=== PATIENT | female | born 1980 | race Caucasian/White ===

== ENCOUNTER → 2016-07-05 | Outpatient (CLI) | payer OTHER ==
[2016-07-05 16:37] LABS: FREE T4 (FREE THYROXINE) 0.98 ng/dL (0.93-1.71)
== END ==
LOC: LAB 15:31
PROVIDERS: ATTEND Family Medicine
DX: E06.3 Autoimmune thyroiditis (principal)
CPT/HCPCS: 36415; 84439; 84443

== ENCOUNTER → 2016-07-10 | Outpatient (CLI) | payer OTHER | LOC: LAB 15:17 | PROVIDERS: ATTEND Obstetrics & Gynecology Gynecology | DX: Z32.00 Encounter for pregnancy test, result unknown (principal) | CPT/HCPCS: 36415; 84144; 84702 ==

== ENCOUNTER → 2016-07-12 | Outpatient (CLI) | payer OTHER ==
[2016-07-12 12:08] LABS: HEMATOCRIT 41.2 % (37.0-47.0); HEMOGLOBIN 14.6 g/dL (12.0-16.0); MEAN CORPUSCULAR HEMOGLOBIN 29.1 PG (27-31); MEAN CORPUSCULAR HGB CONC 35.4 g/dL (33-37); RDW COEFFICIENT OF VARIATION 12.6 % (11.5-14.5); RED BLOOD COUNT 5.01 10^6/uL (4.20-5.40); WHITE BLOOD COUNT 7.84 10^3/uL (4.8-10.8)
[2016-07-12 12:53] LABS: HIV ANTIBODY NEGATIVE (N); HIV-1 P24 ANTIGEN NEGATIVE (N)
[2016-07-13 23:51] LABS: HEP B SURFACE AG Negative (Negative); RUBELLA IGG INDEX 4.4 (())
[2016-07-13 23:52] LABS: HCV AB SCREEN Negative (Negative)
[2016-07-14 14:51] LABS: SYPHILIS ANTIBODY BY TP-PA Negative (Negative)
== END ==
LOC: LAB 11:27
PROVIDERS: ATTEND Obstetrics & Gynecology Gynecology
DX: Z01.83 Encounter for blood typing (principal); Z13.0 Encounter for screening for diseases of the blood and blood-forming organs and certain disorders involving the immune mechanism; Z11.3 Encounter for screening for infections with a predominantly sexual mode of transmission; Z11.59 Encounter for screening for other viral diseases; Z11.8 Encounter for screening for other infectious and parasitic diseases; Z13.29 Encounter for screening for other suspected endocrine disorder
CPT/HCPCS: 84702; 85027; 86703; 86762; 86780; 86803; 86850; 86900; 86901; 87340

== ENCOUNTER → 2016-07-14 | Outpatient (CLI) | payer OTHER | LOC: LAB 08:36 | PROVIDERS: ATTEND Obstetrics & Gynecology Gynecology | DX: Z32.01 Encounter for pregnancy test, result positive (principal) | CPT/HCPCS: 36415; 84702 ==

== ENCOUNTER → 2016-10-24 | Outpatient (CLI) | payer OTHER ==
[2016-10-24 11:03] LABS: FREE T4 (FREE THYROXINE) 1.2 ng/dL (0.93-1.71)
--- NOTE | 2016-10-24 12:09 | DI ---
US OB GTE 14 WEEKS,10/24/2016 8:52 AM: Clinical History: screening for malformations. Previous Exam: None at this facility. Findings: Multiple grayscale and color Doppler sonographic images are obtained through the pelvis, and demonstr ate a single live intrauterine gestation in breech presentation. Amniotic fluid is subjectively fernando l. Detected Doppler heart tones measure 136 beats per minute. There is normal motion of the heart and limbs with normal respiratory motion. The placenta is anterior and grade 0 without visible defects. Estimated gestational age was determined by a composite of biparietal diameter, head circumference an d abdominal circumference and femur length yielding an estimated gestational age by ultrasound of 19 weeks 5 days. Estimated weight is 310 g (31st percentile). Impression: Single live intrauterine gestation with size equal to dates.
== END ==
LOC: US 08:49 → LAB 08:49
PROVIDERS: ATTEND Family Medicine
DX: O99.282 Endocrine, nutritional and metabolic diseases complicating pregnancy, second trimester (principal); E06.3 Autoimmune thyroiditis; Z36 Encounter for antenatal screening of mother; Z3A.19 19 weeks gestation of pregnancy
CPT/HCPCS: 36415; 76805; 84439; 84443

== ENCOUNTER → 2016-12-15 | Outpatient (CLI) | payer OTHER ==
[2016-12-15 11:13] LABS: HEMATOCRIT 35.9 % (37.0-47.0); HEMOGLOBIN 12.3 g/dL (12.0-16.0); MEAN CORPUSCULAR HEMOGLOBIN 29.6 PG (27-31); MEAN CORPUSCULAR HGB CONC 34.3 g/dL (33-37); MEAN CORPUSCULAR VOLUME 86.5 FL (81-99); MEAN PLATELET VOLUME 9.7 FL (7.4-12.2); RED BLOOD COUNT 4.15 10^6/uL (4.20-5.40)
== END ==
LOC: LAB 09:36
PROVIDERS: ATTEND Obstetrics & Gynecology
DX: Z36 Encounter for antenatal screening of mother (principal); Z3A.27 27 weeks gestation of pregnancy
CPT/HCPCS: 36415; 82950; 84443; 85027

== ENCOUNTER → 2016-12-18 | Outpatient (CLI) | payer OTHER ==
--- NOTE | 2016-12-21 14:05 | HOLTER ---
[facility] Interpretive Statements This is a 48 hour Holter study done for "heart flutters." Patient only had 2 diary entries, but several button pushes. The diary reports only one episode of " hard beats, some flutter" with corresponding normal sinus rhythm at 85 BPM with a single ventricular ectopic beat at 9:50 PM day 1. There were another 18 orellana to the tracings and all corresponded to the predominate rhythm of normal sinus at rates from 80 to 130 BPM and there were 12 separate ventricular ectopics within these 18 marked tracings. Total recorded beats were 252,210 with an average rate of 95 BPM, a minimum of 62 BPM, and a maximal rate of 144 BPM occuring at 9:39 PM day 2 (without reported symptoms or kaitlin to the tracing). There were only 4 possible atrial ectopics and 185 ventricular ectopics with zero R on T and all being singlets. There was no significant bradycardia or pauses. The average QTc was 419 ms. IMPRESSION: Normal 48 hour Holter study with singlet VPCs correlating to symptoms as reported. Electronically Signed On 12-22-16 08:08:26 MDT by Dinesh Huston MD [email or web address]
== END ==
LOC: RT 18:36
PROVIDERS: ATTEND Family Medicine
DX: O26.892 Other specified pregnancy related conditions, second trimester (principal); R00.2 Palpitations; Z3A.27 27 weeks gestation of pregnancy
CPT/HCPCS: 93225; 93226; 93227

== ENCOUNTER 2017-03-07 09:48 | Inpatient (IN) ==
[2017-03-07] MEDS ORDERED: Famotidine Inj 20 MG in Normal Saline Flush 10 ML IVP ONE (09:50)
[2017-03-07] MEDS ORDERED: LIDOCAINE W/ SODIUM BICARB 0.5 ML SYR SUBD PRN (09:50)
[2017-03-07] MEDS ORDERED: CITRIC ACID/SODIUM CITRATE 30 ML CUP PO ONE (09:50)
[2017-03-07] MEDS ORDERED: CefOXitin Inj 2 GM in Sodium Chloride 0.9% 100 ML IV ONE (09:50)
[2017-03-07] MEDS ORDERED: NORMAL SALINE 10 ML SYRINGE FLUSH IVP PRN ×2 (09:50→13:45)
[2017-03-07] MEDS ORDERED: Metoclopramide Inj 10 MG/2 ML VIAL IV ONE (09:50)
[2017-03-07] MEDS ORDERED: D5-LR 1,000 ML PRIMARY IV SCH (10:00)
[2017-03-07] MEDS ORDERED: Oxytocin 20 Units + LR 20 UNIT/1,000 ML BAG IV SCH ×2 (10:00→13:52)
[2017-03-07] MEDS ORDERED: LIDOCAINE W/ SODIUM BICARB 0.5 ML SYR SUBCUT ONE (10:19)
[2017-03-07 10:43] LABS: Hematocrit [HCT] 37.5 % (37.0-47.0); Hemoglobin [HGB] 12.8 g/dL (12.0-16.0); MEAN CORPUSCULAR HEMOGLOBIN 28.9 PG (27-31); MEAN CORPUSCULAR HGB CONC 34.1 g/dL (33-37); MEAN CORPUSCULAR VOLUME 84.7 FL (81-99); MEAN PLATELET VOLUME 11.9 FL (7.4-12.2); RED BLOOD COUNT 4.43 10^6/uL (4.20-5.40)
[2017-03-07] MEDS: Lactated Ringers 1,000 ML PRIMARY IV ONE ×2 (12:08→12:43)
[2017-03-07] MEDS ORDERED: OXYTOCIN 10 UNIT/1 ML ONE (12:12)
[2017-03-07] MEDS ORDERED: ePHEDrine Inj 50 MG/ML AMP ONE (12:12)
[2017-03-07] MEDS ORDERED: Lactated Ringers 1,000 ML PRIMARY IV ONE (12:13)
[2017-03-07] MEDS ORDERED: MORPHINE SULFATE/PF 10 MG/10 ML AMPULE ONE (12:36)
[2017-03-07] MEDS ORDERED: Clindamycin 900mg (Premix) 900 MG/50 ML BAG IV SCH (12:45)
[2017-03-07] MEDS ORDERED: Aztreonam Inj 2 GM in Sodium Chloride 0.9% 100 ML IV ONE (12:45)
[2017-03-07] MEDS ORDERED: Lactated Ringers 1,000 ML PRIMARY IV SCH (13:00)
[2017-03-07] MEDS ORDERED: Sodium Chloride 0.9% vial 10 ML ONE (13:03)
[2017-03-07] MEDS ORDERED: PHENYLEPHRINE 10,000 MCG/1 ML VIAL ONE (13:03)
[2017-03-07] MEDS ORDERED: ONDANSETRON 4 MG/2 ML VIAL ONE ×2 (13:15→15:55)
--- NOTE | 2017-03-07 13:38 | OB.OP.NOTE ---
Operative Report Surgeon: Fanny [employer] Inspector: Lj Rodriguez MD Anesthesia Type: Regional Anesthesia Provider: Jacinto Smalls CRNA Surgery Date: 03/07/17 Preoperative Diagnosis: 39 week IUP, Previous , Desires Sterilization Postoperative Diagnosis: Same Procedure: Repeat LTCS with PPTL with Filshie Clips Estimated Blood Loss (mL): 400 Fluids: 1700 ml Complications: None Findings at Surgery: Viable female infant, Apgars 9/10, Weight 6 lbs 2oz, Double Nuchal Cord, Normal Uterus, Tubes and Ovaries Indications for the Procedure: 39 week EGA, previous section, desires sterilization Description of Procedure: See dictated operative report. Plan: Routine post operative care.
[2017-03-07] MEDS ORDERED: ONDANSETRON 4 MG/2 ML VIAL IVP PRN (13:45)
[2017-03-07] MEDS ORDERED: ePHEDrine Inj 50 MG/ML AMP IVP PRN (13:45)
[2017-03-07] MEDS ORDERED: HYDROmorphone 2 MG/1 ML IVP PRN (13:45)
--- NOTE | 2017-03-07 13:47 | CRNA.PROGR ---
Anesthesia Time - - Start date: 03/07/17 End date: 03/07/17 - Procedure/Recovery Time Anesthesia : Time In: 12:50 Anesthesia : Time Out: 13:35 Anesthesia : Total Time: 45 - Total Anesthesia Time Total Anesthesia Time (minutes): 45 - Other Weight: 73.482 kg Height: 5 ft 2 in Body Mass Index (BMI): 29.6 Physical Status: P2 Anesthesia Type: Spinal Block Obstetrics: C/S anesthesia only
--- NOTE | 2017-03-07 13:48 | CRNA.PROCE ---
Central Neuraxis Block Placemt - - Safety Measures: Time Out Taken - - Type of Block: Subarachnoid, Epidural Reason for Block: Surgical Moniters Used During Block: EKG, SPO2, NIBP Positioning: Sitting Skin Prep Used: ChloroPrep Draped: Yes Skin Infiltration - Enter Amount Used in Comment Field: 1% Xylocaine (mL): Yes Introducer User: 23 Gauge Spinal Needle Used: 25 Lacey 80 mm Local Anesthetic - Enter Amount Used in Comment Field: 0.75 % Bupivacaine with Dextrose (ml): Yes (12mg) Additive Used - Enter Amount Used in Comment Field: Preservative Free Morphine ( mg): Yes (0.15mg) Anesthesia Time - Other Weight: 73.482 kg Height: 5 ft 2 in Body Mass Index (BMI): 29.6
--- NOTE | 2017-03-07 13:48 | CRNA.PROGR ---
Anesthesia Recovery Phase I - Post Anesthesia Evaluation Patient's Condition on Arrival in Phase I: Stable Pain Level: 0
[2017-03-07] MEDS ORDERED: Famotidine Inj 20 MG in Normal Saline Flush 10 ML IVP PRN (13:52)
[2017-03-07] MEDS ORDERED: diphenhydrAMINE 25 MG CAPSULE PO PRN (13:52)
[2017-03-07] MEDS ORDERED: Naloxone Inj 0.01 MG, Sodium Chloride 0.9% vial 1 ML IVP PRN ×2 (13:52)
[2017-03-07] MEDS ORDERED: Nalbuphine Inj 20 MG/ML Ampule IVP PRN (13:52)
[2017-03-07] MEDS ORDERED: DIPH,PERTUSS,TET(ADACEL) VAC/PF 0.5 ML (Tdap) IM ONE (13:52)
[2017-03-07] MEDS ORDERED: LANOLIN HPA 40 GM TUBE TOPICAL PRN (13:52)
[2017-03-07] MEDS ORDERED: CALCIUM CARBONATE 500 MG (TUMS) CHEWABLE TABLET PO PRN (13:52)
[2017-03-07] MEDS ORDERED: diphenhydrAMINE 50 MG/1 ML VIAL IV PRN (13:52)
[2017-03-07] MEDS: KETOROLAC 15 MG/1 ML VIAL IVP PRN ×2 (14:36→22:00)
[2017-03-07] MEDS: D5-LR 1,000 ML PRIMARY IV SCH ×2 (15:42→21:37)
[2017-03-07] MEDS: oxyCODONE-ACETAMINOPHEN 5-325 TAB PO PRN (17:44)
[2017-03-07] MEDS: ONDANSETRON 4 MG/2 ML VIAL IVP PRN (20:16)
[2017-03-08] MEDS: oxyCODONE-ACETAMINOPHEN 5-325 TAB PO PRN ×4 (02:15→20:08)
[2017-03-08] MEDS: NORMAL SALINE 10 ML SYRINGE FLUSH IVP PRN ×5 (02:16→15:31)
[2017-03-08] MEDS: ONDANSETRON 4 MG/2 ML VIAL IVP PRN ×4 (02:16→15:31)
[2017-03-08] MEDS: KETOROLAC 15 MG/1 ML VIAL IVP PRN ×3 (04:09→15:30)
[2017-03-08] MEDS: LEVOTHYROXINE 125 MCG TABLET PO SCH (05:27)
[2017-03-08] MEDS ORDERED: LEVOTHYROXINE 100 MCG TABLET PO SCH (05:30)
[2017-03-08 06:00] LABS: Hematocrit [HCT] 33.3 % (37.0-47.0); Hemoglobin [HGB] 11.2 g/dL (12.0-16.0); MEAN CORPUSCULAR HEMOGLOBIN 28.7 PG (27-31); MEAN CORPUSCULAR HGB CONC 33.6 g/dL (33-37); MEAN CORPUSCULAR VOLUME 85.4 FL (81-99); MEAN PLATELET VOLUME 10.7 FL (7.4-12.2); RED BLOOD COUNT 3.9 10^6/uL (4.20-5.40)
[2017-03-08] MEDS: Prenatal Multivitamin Tab 1 TAB TAB PO SCH (10:04)
[2017-03-08] MEDS: Senna/Docusate Tab 1 TAB TAB PO SCH ×2 (10:04→20:09)
--- NOTE | 2017-03-08 10:23 | OB.PROGRES ---
Subjective Post Op Day: 1 Pain Management: PO Vásquez Catheter: No Flatus: Yes Diet: Regular Feeding Method: Exculsively Ambulating: Yes Concerns / Additional Information: Doing well today. Pain is well managed. Ambulating without difficulty. Assesstment / Plan Assessment / Plan: POD 1, doing well. Continue current management.
--- NOTE | 2017-03-08 11:25 | CRNA.PROGR ---
Anesthesia Note - Progress Notes Anesthesia Progress Note: She is visiting with family at this time. Has been ambulatory ad erwin and has no concerns or complaints at this time. She has no questions regarding her anesthetic course. Laboratory Results 03/07/17 03/08/17 Range/Units 10:46 05:57 WBC 10.60 (4.8-10.8) 10^3/uL RBC 3.90 L (4.20-5.40) 10^6/uL Hgb 11.2 L (12.0-16.0) g/dL Hct 33.3 L (37.0-47.0) % MCV 85.4 (81-99) FL MCH 28.7 (27-31) PG MCHC 33.6 (33-37) g/dL RDW Std Deviation 42.7 (39-50) fL RDW Coeff of Parviz 13.9 (11.5-14.5) % Plt Count 142 (140-350) 10*3/uL MPV 10.7 (7.4-12.2) FL Blood Type B POSITIVE Antibody Screen Negative Vital Signs (24 hrs) Temp Pulse Pulse Pulse Resp BP BP 03/08/17 09:55 98.1 F 83 18 111/70 03/08/17 05:30 03/08/17 05:00 98.1 F 84 16 96/67 03/08/17 02:51 98.2 F 82 16 89/59 03/07/17 19:45 98.2 F 79 79 16 112/76 03/07/17 17:01 98.1 F 87 18 107/76 03/07/17 16:44 98.3 F 99 18 111/75 03/07/17 15:45 98.0 F 87 18 118/80 03/07/17 15:15 98.0 F 97 17 151/59 03/07/17 14:30 98.0 F 82 17 108/77 03/07/17 14:15 97.0 F 92 18 110/41 03/07/17 14:00 96.8 F 86 19 120/75 03/07/17 13:56 99 17 121/97 03/07/17 13:51 105 H 15 109/69 03/07/17 13:46 92 15 107/61 03/07/17 13:41 100 14 99/61 09/20/17 13:36 92 16 105/64 09/20/17 13:31 97.4 F 96 15 106/58 Pulse Ox 03/08/17 09:55 97 03/08/17 05:30 96 03/08/17 05:00 95 03/08/17 02:51 94 03/07/17 19:45 100 03/07/17 17:01 100 03/07/17 16:44 99 03/07/17 15:45 100 03/07/17 15:15 99 03/07/17 14:30 99 03/07/17 14:15 98 03/07/17 14:00 93 03/07/17 13:56 99 03/07/17 13:51 99 03/07/17 13:46 100 03/07/17 13:41 99 03/07/17 13:36 98 03/07/17 13:31 94
[2017-03-08] MEDS: Ondansetron ODT Tab 4 MG TAB PO PRN (20:08)
[2017-03-08] MEDS: IBUPROFEN 800 MG TABLET PO PRN (21:55)
[2017-03-09] MEDS: oxyCODONE-ACETAMINOPHEN 5-325 TAB PO PRN ×4 (00:26→18:21)
[2017-03-09] MEDS: Ondansetron ODT Tab 4 MG TAB PO PRN ×4 (00:27→18:22)
[2017-03-09] MEDS: LEVOTHYROXINE 125 MCG TABLET PO SCH (05:22)
[2017-03-09] MEDS: Senna/Docusate Tab 1 TAB TAB PO SCH (08:59)
[2017-03-09] MEDS: Prenatal Multivitamin Tab 1 TAB TAB PO SCH (08:59)
--- NOTE | 2017-03-09 09:18 | DCSUMMARY ---
Hospitalization Summary Admit Date: 03/07/17 Discharge Date: 03/09/17 Primary Diagnosis:: Previous cesareand delivery at term Secondary Diagnosis:: Desires sterilization Primary Surgery and Date: Repeat LTCS with PPTL (Filshie Clips) 03/07/17 Delivery Type: Hospital Course: Normal, uncomplicated surgery and recovery/ course. Discharge to home on POD 2 in good condition. F/u in 1 week. / Postop Complications: None Complications: None Exam - Vitals Vital Signs: Vital Signs Temperature 98.1 F Temperature Source Oral Pulse Rate [Apical] 83 Pulse Rate [Pulse Oximeter] 68 Pulse Rate 87 Respiratory Rate 16 Blood Pressure [Left Arm] 108/71 Blood Pressure [Right Arm] 99/62 Blood Pressure 107/76 Pulse Ox 92 Oxygen Flow Rate 1 Oxygen Delivery Method Room Air Height 5 ft 2 in Weight 162 lb
[2017-03-09 09:30] VITALS: TEMP 98.3; O2SAT 93
[2017-03-09] MEDS: IBUPROFEN 800 MG TABLET PO PRN (09:41)
[2017-03-09 14:50] VITALS: BP 112/75; RESP 18
== END 2017-03-09 18:15 | disposition home or self-care (01) | DRG 766 ==
LOC: OBOR 09:48 → OBIP 14:00
PROVIDERS: ADMIT Obstetrics & Gynecology; ATTEND Obstetrics & Gynecology